=== PATIENT | male | born 1960 | race Caucasian/White ===

== ENCOUNTER → 2018-06-23 13:58 | Outpatient (CLI) | payer MEDICAID, SELFPAY ==
[2018-06-23 14:12] LABS: Basophils # 0.1 K/mm3 (0-0.2); Basophils % 1.1 % (0.1-2.0); Eosinophils # 0.2 K/mm3 (0.0-0.4); Eosinophils % 2.4 % (0.1-12.0); Hematocrit 51.5 % (42.0-52.0); Hemoglobin 17.5 g/dL (14.1-18.0); Lymphocytes # 2.1 K/mm3 (0.7-4.5); Lymphocytes % 28.3 % (10-50); Mean Corpuscular HGB Conc 33.9 g/dL (31.8-35.4); Mean Corpuscular Hemoglobin 29.2 pg (27.0-31.2); Mean Corpuscular Volume 86.1 fl (80-94); Mean Platelet Volume 8.6 fl (7.4-10.4); Monocytes # 0.4 K/mm3 (0.1-1.0); Monocytes % 5.8 % (1.7-9.3); Neutrophils # 4.6 K/mm3 (1.8-7.8); Neutrophils % 62.5 % (37.0-80.0); Platelet Count 265 K/mm3 (142-424); Red Blood Count 5.99 M/mm3 (4.60-6.20); Red Cell Distribution Width 14.1 % (11.5-17.5); White Blood Count 7.4 K/mm3 (4.8-10.8)
[2018-06-23 14:40] LABS: Alanine Aminotransferase 40 U/L (12-78); Albumin Level 4.4 gm/dL (3.4-5.0); Albumin/Globulin Ratio 1.1 (1.1-1.8); Alkaline Phosphatase 97 U/L (46-116); Aspartate Amino Transferase 21 U/L (15-37); Bilirubin,Total 0.3 mg/dL (0.2-1.0); Blood Urea Nitrogen 10 mg/dL (7-18); Carbon Dioxide 22 mmol/L (21.0-32.0); Chloride 100 mmol/L (98-107); Chol/HDL Ratio 7.7 (1-3.5); Cholesterol 276 mg/dL (140-200); Estimated Glomerular Filt Rate 87 ml/min (>60); Free T4 (Free Thyroxine) 0.81 ng/dl (0.76-1.46); GFR (African American) 105 ML/MIN (>60); Globulin 3.9 gm/dl (1.3-3.2); Glucose 252 mg/dL (74-106); HDL Cholesterol 36 mg/dL (27-67); LDL Cholesterol 206 mg/dL (0-130); Sodium 135 mmol/L (136-145); Thyroid Stimulating Hormone 2.34 uIU/ml (0.358-3.740); Total Protein,Serum 8.3 gm/dL (6.4-8.2); Triglycerides 168 mg/dL (30-200); VLDL Cholesterol 34 mg/dL (0-40)
[2018-06-23 15:08] LABS: Hemoglobin A1C 8.2 % (0.0-7.0)
[2018-06-24 10:14] LABS: PSA, Free 0.24 ng/mL; Prostate Specific Ag 0.4 ng/mL (0.0-4.0); Vitamin D 25 Hydroxy 17.8 ng/mL (30.0-100.0)
[2018-06-24 13:50] LABS: Microalbumin, Urine 6.5 ug/mL (Not Estab.)
== END ==
PROVIDERS: Visit Provider Emergency Medicine
DX: E11.9 Type 2 diabetes mellitus without complications (principal); I10 Essential (primary) hypertension; E55.9 Vitamin D deficiency, unspecified; Z79.4 Long term (current) use of insulin
CPT/HCPCS: 80053; 80061; 82043; 82652; 83036; 84153; 84154; 84439; 84443; 85025